=== PATIENT | female | born 1955 | race Caucasian/White ===

== ENCOUNTER 2019-10-26 13:54 | Emergency (ER) | payer OTHER, MEDICARE ==
[~2019-10-26] VITALS: Ht 154.9 cm; Wt 71.2 kg
[~2019-10-26 13:54] MED LIST: DARVOCET-N 1001 EACH PO; DOXYCYCLINE 10100 M1 PO; LEXAPRO20 MG PO; PRILOSEC 20 MG20 MG PO; SIMVASTATIN20 MG PO
[2019-10-26] MEDS ORDERED: AZELASTINE205.5 MCG/ NARES (14:09)
[2019-10-26] MEDS ORDERED: XYZAL5 MG PO (14:10)
[2019-10-26] MEDS ORDERED: CRESTOR40 MG PO (14:10)
[2019-10-26] MEDS ORDERED: ULTRAM 50MG TAB50 MG PO (14:10)
[2019-10-26 15:05] VITALS: BP 145/75
== END 2019-10-26 15:05 | disposition home or self-care (01) ==
LOC: M.ERS 13:54
DX: S93.525A Sprain of metatarsophalangeal joint of left lesser toe(s), initial encounter (principal); Z79.899 Other long term (current) drug therapy; Z88.0 Allergy status to penicillin; Z88.6 Allergy status to analgesic agent; X50.1XXA Overexertion from prolonged static or awkward postures, initial encounter; Y93.89 Activity, other specified; Y92.89 Other specified places as the place of occurrence of the external cause; Y99.8 Other external cause status

== ENCOUNTER 2019-11-26 17:26 | Emergency (ER) | payer OTHER, MEDICARE ==
[~2019-11-26] VITALS: Ht 154.9 cm; Wt 70.3 kg
[~2019-11-26 17:26] MED LIST changes: +AZELASTINE205.5 MCG/ NARES; +CRESTOR40 MG PO; +ULTRAM 50MG TAB50 MG PO; +XYZAL5 MG PO
[2019-11-26] MEDS ORDERED: CIPROFLOXACIN500 M1 PO (18:06)
[2019-11-26] MEDS ORDERED: FLAGYL500 M1 PO (18:06)
[2019-11-26 18:14] VITALS: BP 145/85
== END 2019-11-26 18:15 | disposition home or self-care (01) ==
LOC: M.ERS 17:26
DX: S91.031A Puncture wound without foreign body, right ankle, initial encounter (principal); Z88.0 Allergy status to penicillin; Z88.6 Allergy status to analgesic agent; Z88.8 Allergy status to other drugs, medicaments and biological substances; W55.01XA Bitten by cat, initial encounter; Y93.89 Activity, other specified; Y92.89 Other specified places as the place of occurrence of the external cause; Y99.8 Other external cause status